=== PATIENT | male | born 1965 | race Caucasian/White ===

== ENCOUNTER 2016-10-26 11:23 | Emergency (ER) | payer OTHER ==
[~2016-10-26] VITALS: Ht 172.7 cm; Wt 72.6 kg
[2016-10-26] MEDS ORDERED: PREDNISONE10 MG PO (11:57)
[2016-10-26] MEDS ORDERED: FOLIC ACID1 MG PO (11:57)
[2016-10-26 12:46] LABS: HEMATOCRIT 33.2 % (38.0-50.0); MCH 29.2 PG (29.0-34.0); MCHC 33.4 G/DL (30.0-36.0); MCV 87.4 FL (86-99); MEAN PLAT.VOLUME 8.2 uM^3 (9.0-12.4); PLATELET COUNT 881 K/uL (156-360); RBC DIS.WIDTH-CV 13.2 % (11.8-14.6); RBC DIS.WIDTH-SD 42.7 % (39-53); WHITE BLOOD COUNT 11.5 K/uL (4.1-10.2)
[2016-10-26 12:54] LABS: CHLORIDE 94 mEq/L (99-109)
[2016-10-26 12:55] LABS: POTASSIUM 3.1 mEq/L (3.7-5.4); SODIUM 132 mEq/L (136-147)
[2016-10-26 12:57] LABS: GLUCOSE 130 mg/dL (70-99)
[2016-10-26 12:58] LABS: ANION GAP 8 MEQ/L (2-14)
[2016-10-26 12:59] LABS: TOTAL BILIRUBIN 0.3 mg/dL (0.0-1.0)
[2016-10-26 13:00] LABS: ALKALINE PHOSPHATASE 76 IU/L (3-129)
[2016-10-26 13:01] LABS: GFR ESTIMATE (CALCULATED) > 59 mL/min/
[2016-10-26 13:02] LABS: UREA NITROGEN (BUN) 13 mg/dL (9-23)
[2016-10-26 13:37] LABS: EOSINOPHIL (%) 0 % (0-5); IMMATURE GRANULOCYTE (%) 0.6 % (0.0-0.7); IMMATURE GRANULOCYTE COUNT 0.1 K/uL; INSTRUMENT ABS NEUTROPHIL CT 9.9 K/uL; LYMPHOCYTE COUNT 0.6 K/uL (1.0-2.8); MONOCYTE (%) 7.8 % (3-12); MONOCYTE COUNT 0.9 K/uL (0-0.8); NEUTROPHIL (%) 86.2 % (45-76); NEUTROPHIL COUNT 9.9 K/uL (1.8-6.4)
[2016-10-26 14:07] LABS: ADD MIUA? NO; BILIRUBIN NEGATIVE; BLOOD NEGATIVE; COLOR YELLOW ((YELLOW)); GLUCOSE (STRIP) NEGATIVE; KETONES NEGATIVE; LEUKOCYTES NEGATIVE; NITRITE NEGATIVE; PROTEIN (STRIP) NEGATIVE; SPECIFIC GRAVITY 1.012 (1.000-1.030); UCUL ADDED? NO
[2016-10-26] MEDS ORDERED: DILAUDID2 MG PO (14:27)
[2016-10-26 14:45] VITALS: BP 107/78
== END 2016-10-26 14:50 | disposition home or self-care (01) ==
LOC: EME 11:23
PROVIDERS: Emergency Medicine
DX: R10.9 Unspecified abdominal pain (principal); K51.90 Ulcerative colitis, unspecified, without complications; F17.200 Nicotine dependence, unspecified, uncomplicated
CPT/HCPCS: 80053; 81003; 85025; 99281; 99285; J2270; J2405; J7030

== ENCOUNTER 2017-01-14 09:15 | Emergency (ER) | payer OTHER ==
[~2017-01-14 09:15] MED LIST: DILAUDID2 MG PO; FOLIC ACID1 MG PO; PREDNISONE10 MG PO
== END 2017-01-14 13:25 ==
LOC: TRA 09:15
DX: I46.8 Cardiac arrest due to other underlying condition (principal); S00.01XA Abrasion of scalp, initial encounter; V44.5XXA Car driver injured in collision with heavy transport vehicle or bus in traffic accident, initial encounter; Y92.410 Unspecified street and highway as the place of occurrence of the external cause
CPT/HCPCS: 80048; 81003; 82150; 83690; 85025; 86900; 86901; 92950; 99281; 99285; G0480